=== PATIENT | male | born 1980 | race Native Hawaiian/Other Pacific Islander ===

== ENCOUNTER 2021-11-20 08:57 | Day surgery (SDC) | payer OTHER ==
[~2021-11-20] VITALS: Ht 177.8 cm; Wt 91.9 kg
[2021-11-20] VITALS (10 sets, daily range): BP systolic 100–128; BP diastolic 55–89
[~2021-11-20 08:57] MED LIST: ACET-1008 PO; ceFAZolin inj. 2,000 MG in dextrose 5%-water 100 ML IV ONE; famotidine 20mg tablet PO ONE; ringers solution, lacted 1,000 ML IV SCH
--- NOTE | 2021-11-20 09:30 | NUR ---
PT PREPPED FOR SURGERY, 2 GUARDS AT BEDSIDE, IV STARTED WITHOUT DIFFICULTY, LEFT FOOT AND LEG PREPPED.
[2021-11-20] MEDS ORDERED: ondansetron/PF 4mg/2ml inj IV PRN (10:05)
[2021-11-20] MEDS ORDERED: morphine 2 MG/ML inj. syringe IV PRN (10:05)
[2021-11-20] MEDS ORDERED: proCHLORperazine 10 MG/2 ml inj IV PRN (10:05)
[2021-11-20] MEDS ORDERED: ketorolac trometh. 30mg/ml inj. IV ONE (10:05)
[2021-11-20] MEDS ORDERED: ringers solution, lacted 1,000 ML IV SCH (10:05)
[2021-11-20] MEDS ORDERED: morphine 4 MG/ML inj SYRINge IV PRN (10:05)
[2021-11-20] MEDS ORDERED: acetaminophen 1,000mg/100ml IV 100 ML IV PRN (10:05)
[2021-11-20] MEDS ORDERED: hydrALAZINE 20mg/ml inj. IV PRN (10:05)
[2021-11-20] MEDS ORDERED: meperidine/PF 25mg/ml syringe IV PRN ×3 (10:05)
[2021-11-20] MEDS ORDERED: labetalol 20mg/4ml (5mg/ml) syringe IV PRN (10:05)
[2021-11-20] MEDS ORDERED: BUPIVAcaine/PF 2.5 mg/ml (0.25%) 30ml vial ONE (10:09)
[2021-11-20] MEDS ORDERED: bacitracin 15gm ointment TP ONE (10:09)
[2021-11-20] MEDS ORDERED: cloNIDine hcl/PF 100mcg/ml inj ONE (12:13)
[2021-11-20] MEDS ORDERED: ROPIVAcaine 0.5% (5mg/ml) 30ml vial ONE (12:13)
[2021-11-20] MEDS ORDERED: sevoflurane 250ml liquid IH ONE (12:26)
[2021-11-20] MEDS ORDERED: midazolam 1 mg/ML 2ml injection ONE (12:29)
[2021-11-20] MEDS ORDERED: propofol inj 20 ML IV ONE (13:17)
[2021-11-20] MEDS ORDERED: LIDOcaine 1%/PF 5ML 10 MG/ML VIAL ONE (13:17)
[2021-11-20] MEDS ORDERED: fentaNYL /PF 50mcg/ml 5ml ampule ONE (13:17)
[2021-11-20] MEDS ORDERED: rocuronium 10mg/ml inj IV ONE (13:17)
[2021-11-20] MEDS ORDERED: dexamethasone sod phosphate 4mg/ml inj. ONE (13:17)
[2021-11-20] MEDS ORDERED: ondansetron/PF 4mg/2ml inj ONE (13:17)
--- NOTE | 2021-11-20 14:59 | NUR ---
Received from OR via [facility], 20G TO RIGHT HAND, SPLINT/ELVIA TO LEFT LOWER LEG CDI , accompanied by Anesthesiologist AND CO X2 and report given by Anesthesiolgist. Addendum: 11/20/21 at 1522 by Reyna Roberts RN Amended: Links added.
--- NOTE | 2021-11-20 16:15 | NUR ---
DISCHARGE CRITERIA MET, DISCHARGE INSTRUCTIONS GIVEN TO OFFICERS, DEMONSTRATES VERBAL UNDERSTANDING. DISCHARGED HOME IN GOOD CONDITION, VIA WC TO VAN WITH OFFICERS. PT ABLE TO USE CRUTCHES TO TRANSFER FROM TO TRANSPORT VAN. Addendum: 11/20/21 at 1707 by Reyna Roberts RN Amended: Links added.
== END 2021-11-20 16:19 ==
LOC: PAS 08:57 → EEVIPCON 11:00 → PAS 16:19
PROVIDERS: ATTEND Orthopaedic Surgery
DX: S86.012A Strain of left Achilles tendon, initial encounter (principal); G89.18 Other acute postprocedural pain; Z79.899 Other long term (current) drug therapy; Z98.890 Other specified postprocedural states; X58.XXXA Exposure to other specified factors, initial encounter; Y93.89 Activity, other specified; Y92.89 Other specified places as the place of occurrence of the external cause; Y99.8 Other external cause status
CPT/HCPCS: 27650; 64445; 64447; 76942; 82948; 93005; J0690; J0735; J1100; J2250; J2405; J2704; J2795; J3010; J3490; J7030; J7060; J7120; Z7506; Z7508; Z7512; A4215; A4618; A6402; A6449; A7000